=== PATIENT | male | born 1980 | race African-American/Black ===

== ENCOUNTER 2017-03-09 12:55 | Emergency (ER) | payer OTHER ==
[~2017-03-09] VITALS: Ht 170.2 cm; Wt 70.3 kg
--- NOTE | ~2017-03-09 | CR230 ---
[facility] A Service of [facility] & [facility] RADIOLOGY TEXT RESULTS PATIENT: KEATON MARTINEZ LOCATION: CFTX : 84 UNIT #: [id number] AGE: [address]: Marilee Russell APRN SEX: M ORDER DR: [id number] [facility] [address] [place], [place] [address] [id number] E MR#: [id number] Acc #: [id number] NAME: KEATON MARTINEZ : 1980 SEX: M STUDY DATE/TIME: 03/09/2017 13:31 UNIT: [facility] ROOM: STUDY DESCRIPTION: CR Shoulder Min 2 View Rt Attending Physician: Marilee Russell A.P.R.N. Ordering Physician: Nilo Perez M.D. Primary Care Physician: Primary Care Physician No MEDICAL IMAGING REPORT This report is preliminary unless electronic signature is present EXAM Right shoulder series INDICATIONS Right shoulder pain and bruising after an injury yesterday. PROCEDURE Three views of the right shoulder. COMPARISON None. FINDINGS No acute fracture or dislocation. IMPRESSION No acute findings. Dictated by... Jose Liu M.D. THIS IS AN ELECTRONICALLY VERIFIED REPORT Jose Liu M.D. at 03/11/2017 5:02 PM EED/bindu TD: 03/09/2017 22:51 JOB #: [id number] MEDICAL IMAGING REPORT Page 1 of 1 COPY
[~2017-03-09 12:55] MED LIST: ADVAIR 1001 DISK W/D PO; ALBUTEROL17 GM NEB; BENADRYL PO; FAMOTIDINE PO; NASONEX17 GM; PREDNISONE PO; PROVENTIL INHALER; SINGULAIR PO
== END 2017-03-09 14:15 | disposition home or self-care (01) ==
LOC: CFTX 12:55 → CED 12:55 → CFTX 13:55
DX: S43.421A Sprain of right rotator cuff capsule, initial encounter (principal); X50.9XXA Other and unspecified overexertion or strenuous movements or postures, initial encounter
CPT/HCPCS: 73030; 99283